=== PATIENT | female | born 1945 | race African-American/Black ===

== ENCOUNTER 2025-04-30 12:05 | Emergency (ER) | payer MEDICARE, MEDICAID ==
[~2025-04-30] VITALS: Ht 170.2 cm; Wt 68.0 kg
[2025-04-30 12:09] VITALS: BP 210/92; RESP 16; TEMP 36.9; O2SAT 95
[2025-04-30 12:31] VITALS: PULSE 64
== END 2025-04-30 13:45 | disposition home or self-care (01) ==
LOC: ER 12:05
DX: I10 Essential (primary) hypertension (principal); Z88.5 Allergy status to narcotic agent
CPT/HCPCS: 99284